=== PATIENT | female | born 1945 | race Caucasian/White ===

== ENCOUNTER → 2020-04-07 | Outpatient (CLI) | payer MEDICARE ==
--- NOTE | 2020-04-07 12:34 | Diagnostic Imaging Report ---
EXAMINATION: MRI of the brain without contrast. HISTORY: Memory loss COMPARISON: None. TECHNIQUE: Sagittal T1 ultrathin slice with coronal and axial reformations; axial DWI, T2, FLAIR, T2 gradient echo. FINDINGS: DEMENTIA: Structural lesion: No intra- or extra-axial mass or hematoma. Ventricles: No hydrocephalus. Jimenez matter signal intensity: Cortex: Unremarkable. Basal ganglia: Unremarkable. Thalami: Unremarkable. White matter signal intensity: Cerebral: Scattered MRI to confirm periventricular matter T2 and FLAIR hyperintense foci, most likely nonspecific chronic microvascular ischemic changes. Brainstem: Unremarkable. Mamillary bodies/fornices and hippocampi: No atrophy or abnormal signal. Microhemorrhages: None. Atrophy: Global: Symmetric Focal: Slightly disproportionate bilateral parieto-occipital cortical volume loss, particularly prominent central, postcentral and occipitoparietal sulci. Otherwise no disproportionate lobar, hippocampal, mesencephalic, pontine, or cerebellar atrophy. Vessels: Expected flow voids present in the major arteries and dural sinuses. Sella: Unremarkable. OTHER: Subarachnoid spaces: No abnormal signal intensity. Foramen magnum: Unremarkable. Skull: Unremarkable. Paranasal / mastoid sinuses: No significant inflammatory disease. IMPRESSION: 1. Mildly disproportionate bilateral parieto-occipital cortical volume loss as detailed above. 2. Moderate nonspecific chronic microvascular ischemic changes. Signed by: Dr. Carla Osman M.D. on 04/07/2020 12:31 PM
== END ==
LOC: MRI 10:34
PROVIDERS: ATTEND Emergency Medicine
DX: R41.3 Other amnesia (principal)
CPT/HCPCS: 70551